=== PATIENT | male | born 1995 | race Caucasian/White ===

== ENCOUNTER → 2019-09-22 | Outpatient (CLI) | payer BC ==
[2019-09-22 20:50] LABS: HEMATOCRIT 46.8 % (42.0-52.0); HEMOGLOBIN 15.1 g/dl (13.5-17.5); MEAN CORPUSCULAR HEMOGLOBIN 27.1 pg (27.0-33.0); MEAN CORPUSCULAR HGB CONC 32.3 g/dl (32.0-36.5); PLATELET COUNT, AUTOMATED 246 10^3/uL (150-450); RED BLOOD COUNT 5.57 10^6/uL (4.30-6.10); WHITE BLOOD COUNT 8.3 10^3/uL (4.0-10.0)
[2019-09-22 20:54] LABS: ALBUMIN 4.8 GM/DL (3.2-5.2); ALT/SGPT 36 U/L (12-78); BILIRUBIN,TOTAL 0.7 MG/DL (0.2-1.0); BLOOD UREA NITROGEN 13 MG/DL (7-18); CALCIUM LEVEL 9.5 MG/DL (8.5-10.1); CARBON DIOXIDE LEVEL 30 MEQ/L (21-32); CHLORIDE LEVEL 103 MEQ/L (98-107); CREATININE FOR GFR 1.01 MG/DL (0.70-1.30); FREE T4 1.05 NG/DL (0.76-1.46); GLOMERULAR FILTRATION RATE > 60.0 (>60); GLUCOSE, FASTING 86 MG/DL (70-100); SODIUM LEVEL 139 MEQ/L (136-145); TOTAL PROTEIN 8.2 GM/DL (6.4-8.2)
[2019-09-22 21:30] LABS: ATYPICAL LYMPH 8 % (0-5); EOSINOPHILS 2 % (0-3); LYMPHOCYTES 25 % (16-44); MONOCYTES 16 % (0-5); NEUTROPHILS 49 % (28-66); PLATELET ESTIMATE NORMAL (NORMAL)
[2019-09-23 04:01] LABS: ERYTHROCYTE SEDIMENTATION RATE 1 mm/hr (0-15)
[2019-09-25 00:06] LABS: EBV VIRAL CAPSID AG IgG 45.8 U/mL (0.0-17.9); EBV VIRAL CAPSID AG IgM <36.0 U/mL (0.0-35.9); Lyme Disease IgG/IgM Antibodie <0.91 ISR (0.00-0.90); Lyme Disease IgM Ab Quantitati <0.80 index (0.00-0.79)
== END ==
LOC: M WUC 17:27
PROVIDERS: ATTEND Physician Assistant
DX: L04.0 Acute lymphadenitis of face, head and neck (principal)

== ENCOUNTER → 2019-10-06 | Outpatient (CLI) | payer BC ==
--- NOTE | 2019-10-06 09:15 | REP ---
Ultrasound of the neck for lymphadenopathy: Right side of the neck: There are three hypoechoic masses as follows: 3.1 x 1.0 x 2.5 cm. 0.1 x 0.6 x 1.2 cm. 2.1 x 1.2 x 0.5 cm. These masses may represent enlarged abnormal lymph nodes. Additionally, there is an hypoechoic mass with an hyperechoic center measuring 1.8 x 0.6 x 1.7 cm. This may represent a normal size lymph node. Left side of the neck: There are two hypoechoic masses as follows: 1.7 x 0.8 x 1.2 cm 1.9 x 0.5 x 1.0 cm. These may represent borderline enlarged abnormal lymph nodes. Additionally, there are two hypoechoic masses with hyperechoic centers as follows: 1.5 by 1.1 by 2.2 cm. 1.1 x 0.7 x 1.7 cm. These are borderline enlarged lymph nodes. Impression: Bilateral neck lymph nodes as described. Electronically Signed by Tan Santos MD 10/06/2019 09:07 A
== END ==
LOC: M RAD 08:26
PROVIDERS: ATTEND Family Medicine
DX: R59.0 Localized enlarged lymph nodes (principal)

== ENCOUNTER → 2019-10-27 | Outpatient (CLI) | payer BC ==
[~2019-10-27] MED LIST: ISOVUE-370 76% 100ML VIAL (Q9967) As Ordered ONE
--- NOTE | 2019-10-28 08:33 | REPVR ---
PROCEDURE INFORMATION: Exam: CT Neck With Contrast Exam date and time: 10/27/2019 1:29 PM Age: 24 years old Clinical indication: Neck pain; Additional info: Localized enlarged lymph nodes madan TECHNIQUE: Imaging protocol: Computed tomography images of the neck with intravenous contrast. Radiation optimization: All CT scans at this facility use at least one of these dose optimization techniques: automated exposure control; mA and/or kV adjustment per patient size (includes targeted exams where dose is matched to clinical indication); or iterative reconstruction. Contrast material: Isovue 370; Contrast volume: 75 ml; Contrast route: IV; COMPARISON: Thyroid, ST head+neck US 10/06/2019 8:43 AM FINDINGS: Nasopharynx: Unremarkable. Oropharynx: Unremarkable. No significant tonsillar enlargement. Hypopharynx: Unremarkable. Larynx: Unremarkable. Normal epiglottis. Retropharyngeal space: Unremarkable. Submandibular/Parotid glands: Normal. Glands are normal in size. Thyroid: Normal. No enlarged or calcified nodules. Lymph nodes: Right anterior submandibular lymph node measuring 6.5 mm short axis. Right level 2 lymph node measuring 10.8 mm short axis. Left level 2 lymph nodes, largest measuring 7.8 mm short axis. Trachea: Visualized trachea is unremarkable. Lungs: Unremarkable as visualized. Bones/joints: Unremarkable. No acute fracture. Soft tissues: Unremarkable. No significant soft tissue swelling. IMPRESSION: Mild bilateral cervical lymphadenopathy. Electronically signed by: Mani Ruelas On 10/28/2019 08:33:11 AM
== END ==
LOC: M RAD 12:36
PROVIDERS: ATTEND Otolaryngology
DX: I89.0 Lymphedema, not elsewhere classified (principal)
CPT/HCPCS: 70491; Q9967

== ENCOUNTER → 2019-11-10 | Outpatient (CLI) | payer BC ==
[~2019-11-10] MED LIST changes: -ISOVUE-370 76% 100ML VIAL (Q9967) As Ordered ONE; +LIDOCAINE 1% MDV 20ML VIAL As Ordered ONE
[2019-11-10 14:03] VITALS: BP 136/72
--- NOTE | 2019-11-10 17:28 | REP ---
ULTRASOUND-GUIDED LEFT SUBMANDIBULAR LYMPH NODE BIOPSY The procedure was performed under the direct supervision of Dr. Mott. The left submandibular lymph node was localized using ultrasound guidance. The skin was prepped and draped in a sterile fashion. 1% lidocaine was used as a local anesthetic. Using ultrasound guidance eight fine-needle aspirations were obtained using 25 gauge needles. The patient tolerated the procedure well and there were no immediate complications. After the appropriate amount of monitored convalescence the patient was discharged from the department. Electronically Signed by MELITA Preciado 11/10/2019 03:56 P Electronically Signed by Aj Mott MD 11/10/2019 05:19 P
== END ==
LOC: M IRPRO 12:11
PROVIDERS: ATTEND Otolaryngology
DX: R59.0 Localized enlarged lymph nodes (principal)

== ENCOUNTER → 2019-11-19 | Outpatient (REF) | payer BC ==
[2019-11-19 16:12] LABS: APPEARANCE, URINE CLEAR (CLEAR); BACTERIA, URINE AUTO NEGATIVE (NEGATIVE); BILIRUBIN, URINE AUTO NEGATIVE (NEGATIVE); BLOOD, URINE BLOOD NEGATIVE (NEGATIVE); COLOR, URINE YELLOW (YELLOW); GLUCOSE, URINE (UA) AUTO NEGATIVE (NEGATIVE); KETONE, URINE AUTO NEGATIVE (NEGATIVE); LEUKOCYTE ESTERASE, URINE AUTO NEGATIVE (NEGATIVE); NITRITE, URINE AUTO NEGATIVE (NEGATIVE); PROTEIN, URINE AUTO NEGATIVE (NEGATIVE); RBC, URINE AUTO 1 /HPF (0-3); SQUAMOUS EPITHELIAL CELL UR AU 0 /HPF (0-6); UROBILINOGEN, URINE AUTO 0.2 mg/dL (0.0-2.0); WBC, URINE AUTO 0 /HPF (0-3)
[2019-11-19 16:15] LABS: BASO # 0.1 10^3/uL (0.0-0.2); BASO % 0.7 % (0.0-1.0); EOS # 0.2 10^3/uL (0.0-0.5); EOS % 2.2 % (0.0-3.0); HEMATOCRIT 46.6 % (42.0-52.0); HEMOGLOBIN 14.9 g/dl (13.5-17.5); LYMPH # 2.4 10^3/uL (1.5-5.0); LYMPH % 33.4 % (24.0-44.0); MEAN CORPUSCULAR HEMOGLOBIN 26.9 pg (27.0-33.0); MEAN CORPUSCULAR VOLUME 84.1 fl (80.0-96.0); MONO # 0.7 10^3/uL (0.0-0.8); MONO % 9.5 % (0.0-5.0); NEUTROPHILS # 3.8 10^3/uL (1.5-8.5); NEUTROPHILS % 53.9 % (36.0-66.0); PLATELET COUNT, AUTOMATED 196 10^3/uL (150-450); RED BLOOD COUNT 5.54 10^6/uL (4.30-6.10); WHITE BLOOD COUNT 7.1 10^3/uL (4.0-10.0)
[2019-11-19 17:53] LABS: CHLAMYDIA DNA AMPLIFICATION NEGATIVE (NEGATIVE); GC DNA AMPLIFICATION NEGATIVE (NEGATIVE)
== END ==
LOC: M SFHCCLAY 10:30
PROVIDERS: ATTEND Family Medicine
DX: D72.820 Lymphocytosis (symptomatic) (principal); D72.821 Monocytosis (symptomatic)

== ENCOUNTER → 2019-11-25 | Outpatient (CLI) | payer BC ==
--- NOTE | 2019-11-25 11:46 | REP ---
SCROTAL ULTRASOUND: Real-time sonographic evaluation of the scrotum and contents performed. The testicles are normal in size and echotexture, right testicle measuring 4.6 x 2.4 x 2.9 cm and left testicle 4.6 x 2.6 x 3.1 cm. There is no testicular mass or torsion. Blood flow is seen in each testicle with duplex Doppler evaluation. Subcentimeter cysts are seen in the head of each epididymis, largest on the right is 6 mm and largest on the left is 4 mm. No hydrocele is seen bilaterally. IMPRESSION: Normal testicles. No mass or torsion. Subcentimeter cysts are seen in the head of each epididymis. Electronically Signed by Tan Jade MD 11/25/2019 02:22 P
== END ==
LOC: M RAD 10:45
PROVIDERS: ATTEND Family Medicine
DX: N50.819 Testicular pain, unspecified (principal)

== ENCOUNTER → 2020-01-19 | Outpatient (CLI) | payer BC ==
--- NOTE | 2020-01-19 19:23 | REP ---
Clinical: Mononucleosis. Technique: Real time snell scale and color Doppler ultrasound examination using curved array transducer. Findings: Liver, spleen, and pancreas are normal in contour, size, echogenicity without focal hepatic, splenic, or pancreatic lesions identified. No evidence for splenomegaly. Gallbladder demonstrates small amount of debris without gallstones, wall thickening, or pericholecystic fluid. No biliary ductal dilatation is appreciated and the common bile duct measures 2.7 mm diameter. The bilateral kidneys are normal in reniform shape and vascularity without hydronephrosis or obvious abnormality. Right kidney measures 11.5 x 5.0 x 4.2 cm (RI 0.45). Left kidney measures 10.9 x 4.2 x 4.8 cm (RI 0.52) . Abdominal aorta normal. No ascites. Impression: Normal complete abdominal ultrasound.
== END ==
LOC: M PLAIMG 08:35
PROVIDERS: ATTEND Internal Medicine Hematology
DX: D72.821 Monocytosis (symptomatic) (principal)

== ENCOUNTER → 2020-02-22 | Outpatient (CLI) | payer BC ==
--- NOTE | 2020-02-23 09:39 | REP ---
REASON: Axillary lymphadenopathy. PRIORS: None. In the right axilla, there are three solid peripherally hypoechoic centrally echogenic reniform-shaped nodules, the largest measures 2.6 x 1.4 x 0.9 cm, all consistent with nodes. In the left axilla, there are two peripherally hypoechoic centrally echogenic solid reniform-shaped nodules, the largest measures 2.2 x 1.1 x 1.6 cm and both are consistent with nodes. IMPRESSION: Lymph nodes. Electronically Signed by Alexander Harvey DO 02/23/2020 05:19 P
== END ==
LOC: M RAD 15:52
PROVIDERS: ATTEND Specialist
DX: R59.1 Generalized enlarged lymph nodes (principal)

== ENCOUNTER → 2020-04-13 | Outpatient (CLI) | payer BC | LOC: M LABSMTC 12:04 | PROVIDERS: ATTEND Anesthesiology | DX: Z01.812 Encounter for preprocedural laboratory examination (principal); Z20.828 Contact with and (suspected) exposure to other viral communicable diseases | CPT/HCPCS: C9803; U0003 ==

== ENCOUNTER 2020-04-18 06:07 | Day surgery (SDC) | payer BC ==
[~2020-04-18] VITALS: Ht 175.3 cm; Wt 83.5 kg
[2020-04-18] MEDS ORDERED: ceFAZolin 2 GM/D5W 50 ML IV BAG (J0690 PER 500MG) As Ordered ONE (06:25)
[2020-04-18] MEDS ORDERED: ceFAZolin SOD 2 GM in IV 1 EA IV ONE (06:45)
[2020-04-18] MEDS ORDERED: MIDAZOLAM INJ 2MG/2ML VIAL (J2250 PER 1MG) As Ordered ONE (07:03)
[2020-04-18] MEDS ORDERED: fentaNYL 100 MCG/2 ML INJECTION (J3010) As Ordered ONE (07:04)
[2020-04-18] MEDS ORDERED: propofoL 500 MG/50 ML VIAL As Ordered ONE (07:05)
[2020-04-18] MEDS ORDERED: LIDOCAINE 2% 100MG/5ML SDV (FOR ANES.) As Ordered ONE (07:07)
[2020-04-18] MEDS ORDERED: BUPIVACAINE/EPIN 0.25% 30 ML VIAL As Ordered ONE (07:32)
[2020-04-18] MEDS ORDERED: LIDOCAINE 1% MDV 20ML VIAL As Ordered ONE (07:32)
[2020-04-18] MEDS ORDERED: ONDANSETRON 4MG/2ML VIAL As Ordered ONE (07:41)
[2020-04-18] MEDS ORDERED: propofoL 200 MG/20 ML VIAL As Ordered ONE (08:07)
[2020-04-18] MEDS ORDERED: KETOROLAC 60MG 2ML VIAL As Ordered ONE (08:12)
[2020-04-18 08:50] VITALS: BP 104/65
--- NOTE | 2020-05-11 16:38 | RO ---
DATE OF OPERATION: 04/18/2020 PREOPERATIVE DIAGNOSIS: Right axillary lymphadenopathy. POSTOPERATIVE DIAGNOSIS: Right axillary lymphadenopathy. PROCEDURE: Excisional biopsy right axillary lymph node. SURGEON: Tan Boston DO ENTRY ANALYST: None. ANESTHESIA: MAC with 10 mL of Xylocaine with epinephrine local. COMPLICATIONS: None. INDICATIONS FOR PROCEDURE: The patient is a 24-year-old male who has had persistent lymphadenopathy for the past six months. It has been getting progressively worse. Needle biopsies were inconclusive, so he is here for excisional biopsy. Risks and benefits of the procedure, not limited to, but including bleeding, infection, damage to surrounding structures, and need for further surgery were discussed in detail with the patient. Informed consent was obtained and the procedure was planned. DESCRIPTION OF PROCEDURE: The patient was brought back to operating room #3. After successful sedation, the right axilla was sterilely prepped and draped. Next, a timeout was done to confirm proper patient and proper procedure. Following that, overlying the palpable lymph node, an incision point was marked on the skin with a marker. The incision site was then injected with local. Once that was completed, cautery was used to dissect through the subcutaneous fat. Once that was completed, the fascia was gently incised with Metzenbaum scissors. Blunt dissection was used to carefully identify the lymph node. Once it was identified, it was grabbed with an Allis clamp. It was carefully mobilized using cautery circumferentially. Once the hilum was reached, it was ligated with a 2-0 Vicryl suture. The lymph node was then excised. The subcutaneous tissues were then closed with a two layer repair using 3-0 Vicryl suture. The skin was then closed with a running 4-0 Vicryl subcuticular stitch. The area was then cleaned and dried. Steri-Strips, 4x4s, and tape were applied. TREVOR
== END 2020-04-18 09:03 | disposition home or self-care (01) ==
LOC: M SDC 06:07
PROVIDERS: ATTEND Surgery
DX: R59.0 Localized enlarged lymph nodes (principal)
CPT/HCPCS: 38525; 88305; J0690; J1885; J2250; J2405; J3010